=== PATIENT | male | born 1965 | race Asian ===

== ENCOUNTER 2022-11-09 04:00 | Day surgery (SDC) | payer OTHER ==
[2022-11-09] MEDS ORDERED: MIDAZOLAM HCL 2 MG/2 ML SINGLE DOSE VIAL ONE (08:06)
[2022-11-09] MEDS ORDERED: ONDANSETRON 4 MG/2 ML VIAL ONE (08:07)
[2022-11-09 08:56] VITALS: RESP 16; TEMP 97.8
[2022-11-09 09:24] VITALS: BP 144/92; PULSE 75
== END 2022-11-09 09:20 | disposition home or self-care (01) ==
LOC: JASU-SURG 04:00
PROVIDERS: ATTEND Urology
PROC: 0TF4XZZ Fragmentation in Left Kidney Pelvis, External Approach (ICD-10-PCS; principal; 2022-11-09 08:00)
DX: N20.0 Calculus of kidney (principal)